=== PATIENT | male | born 1945 | race Caucasian/White ===

== ENCOUNTER 2019-03-23 22:54 | Inpatient (IN) ==
--- NOTE | 2019-03-23 23:17 | EKG Report ---
Test Performed on : 03/23/2019 11:13:40 PM Test Reason : sob Blood Pressure : / mmHG Vent. Rate : 057 BPM Atrial Rate : 072 BPM P-R Int : 000 ms QRS Dur : 190 ms QT Int : 516 ms P-R-T Axes : 000 -39 136 degrees QTc Int : 502 ms Atrial fibrillation. with slow ventricular response. with premature ventricular or aberrantly conduct ed complexes. and with ventricular escape complexes. Left axis deviation Left bundle branch block Abnormal ECG When compared with ECG of 04-AUG-2017 16:29, Sinus rhythm. is now with ventricular escape complexes. Unconfirmed Result
[2019-03-24 00:14] LABS: BASO% 0.7 % (0.0-0.8); EOS# 0.36 X1000 (0.0-0.7); EOS% 2.4 % (0.0-10.0); HEMATOCRIT 36.2 % (42.0-52.0); HEMOGLOBIN 11.6 g/dL (14.0-18.0); IMM GRAN# 0.04 X1000 (0.0-0.04); IMM GRAN% 0.3 % (0.0-0.5); LYMPH% 20.9 % (20.5-51.1); MCH 29.2 PG (27-31); MCV 91.2 FL (81-99); MONO# 2.38 X1000 (0.11-0.59); MONO% 16.1 % (1.7-9.3); NEUT# 8.84 X1000 (1.4-6.5); NEUT% 59.6 % (42.2-75.2); PLT 317 X1000 (130-400); RBC 3.97 XMIL (4.7-6.1); RDW 16.3 % (11.5-14.5); WBC 14.82 X1000 (4.8-10.8)
[2019-03-24 00:18] LABS: ALB/GLOB RATIO 1.4; ALBUMIN 4.2 g/dL (3.5-5.0); CALCIUM 9.6 mg/dL (8.8-10.2); POTASSIUM 3.7 mmol/L (3.5-5.1); TOTAL BILIRUBIN 0.59 mg/dL (0.20-1.00); TOTAL PROTEIN 7.3 g/dL (6.3-8.3)
[2019-03-24 00:20] LABS: INR 1.03; PROTIME 14.3 Seconds (11.0-16.0)
[2019-03-24 00:21] LABS: PTT 35.5 Seconds (22.3-41.8)
--- NOTE | 2019-03-24 01:13 | PROVIDER DOCUMENTATION ---
This chart was entered by Rimma Rich Scribe, acting as scribe for Caden Chin MD. HPI-Respiratory General - General Chief Complaint: Shortness of Breath Stated Complaint: EDEMA, SOB Time Seen by Provider: 03/23/19 23:20 Source: patient Allergies/Adverse Reactions: Patient Allergies Allergy/AdvReac Type Severity Reaction Status Date / Time Penicillins Allergy RASH Verified 08/04/17 17:05 Home Medications: Home Medication List Medication Instructions Recorded Confirmed Last Taken Type Furosemide [Lasix] 40 mg PO DAILY 03/08/14 08/04/17 08/04/17 07:00 History Hydralazine [Apresoline] 50 tab PO TID 03/08/14 08/04/17 08/04/17 13:00 History Potassium Chloride [Klor-Con M20] 1 tab PO DAILY 03/08/14 08/04/17 08/04/17 07:00 History Diltiazem HCl [Dilt-Xr] 180 cap PO DAILY 05/24/14 08/04/17 08/04/17 07:00 History Fenofibrate 160 mg PO DAILY 05/24/14 08/04/17 08/04/17 07:00 History Omeprazole 20 mg PO DAILY 05/24/14 08/04/17 08/04/17 07:30 History Digoxin 125 mcg PO DAILY 06/22/14 08/04/17 08/04/17 07:00 History Metoprolol Tartrate 100 mg PO DAILY 06/22/14 08/04/17 08/04/17 07:30 History ATORVAstatin [Lipitor] 40 mg PO QHS 08/04/17 08/04/17 08/03/17 20:00 History Allopurinol 100 mg PO DAILY 08/04/17 08/04/17 08/04/17 07:00 History Aspirin EC 81 mg PO DAILY 08/04/17 08/04/17 08/04/17 07:00 History Fluticasone/Salmeterol [Advair 1 each IH BID 08/04/17 08/04/17 08/04/17 07:00 History 500-50 Diskus] Glimepiride 2 mg PO DAILY 08/04/17 08/04/17 08/04/17 07:00 History Metformin [Glucophage] 500 mg PO BID CC 08/04/17 08/04/17 08/04/17 07:00 History Metolazone 2.5 mg PO DAILY 08/04/17 08/04/17 08/04/17 07:00 History Tiotropium Medora Inhaler 18 mcg IH DAILY 08/04/17 08/04/17 08/04/17 07:00 History [Spiriva] Levofloxacin [Levaquin] 500 mg PO DAILY #5 tab 08/06/17 Unknown Rx - History of Present Illness-Resp Nature of Presenting Problem: pt is a 73 yr old male presenting with 1 day complaint of increased shortness of breath and worsening LE edema. pt reports he doubled his Lasix with no relief. pt denies chest pain. Quality of Pain: reports: fullness Severity in ED: reports: severe Onset/Duration: reports: 2 days ago Timing: reports: changing over time, getting worse Exposure: reports: unknown cause Cough Quality/Degree: reports: no cough Episode Frequency: occasional episodes Current Respiratory Medication Therapy: Initiated see nurses note Modifying Factors: improves with: exertion (worsens) Associated Symptoms: reports: cough, shortness of breath, other (increased edema). denies: fever/chills, flu-like symptoms, wheezing Similar Symptoms Previously?: No Recently seen or treated by another doctor?: No Review of Systems - Adult - REVIEW OF SYSTEMS - ADULT Constitutional: denies: fever, fatique Eyes: reports: no symptoms reported Ears, Nose, Mouth & Throat: reports: no symptoms reported Cardiovascular: reports: edema. denies: chest pain, syncope Respiratory: reports: dyspnea on exertion, shortness of breath. denies: cough Gastrointestinal: reports: no symptoms reported Genitourinary: reports: no symptoms reported Musculoskeletal: reports: no symptoms reported Integumentary: reports: no symptoms reported Neurological: denies: dizziness/vertigo, headache/migraines Psychiatric: reports: no symptoms reported Endocrine: reports: no symptoms reported Hematologic/Lymphatic: reports: no symptoms reported Allergic/Immunologic: reports: no symptoms reported All Other Systems: Reviewed and Negative Past History - Adult - PAST MEDICAL HISTORY-ADULT Review of Records: reports: Old Records Reviewed, Nursing Assessment Review, Medications Reviewed, Social history reviewed & non-contributory. Major Childhood Illnesses: reports: denies history Cardiovascular: reports: CAD, HTN, hyperlipidemia Respiratory: reports: COPD Gastrointestinal: reports: denies history Obstetrical/Gynecological: reports: denies history Genitourinary: reports: cancer (renal), prostate cancer Musculoskeletal: reports: denies history Neurological: reports: denies history Endocrine/Immune: reports: Diabetes Other Conditions: reports: denies history - PRIOR SURGERIES/PROCEDURES Surgical/Procedure History: reports: appendectomy, CABG, cholecystectomy, hernia repair, other (TURP/nephrectomy) - IMMUNIZATION STATUS Childhood Immunizations: See Nurse Assessment Flu Vaccine: See Nurse Assessment - FAMILY HISTORY Family History: reviewed, not pertinent - SOCIAL HISTORY Smoking: quit greater than 1 year Substance Use: denies Living Situation: family Physical Exam-General - PHYSICAL EXAM-ADULT Initial Vital Signs Reviewed: Yes - CONSTITUTIONAL General Appearance: alert, no apparent distress, obese - EYES Eyes: PERRL/EOMI - HEAD, EARS, NOSE, MOUTH & THROAT HENMT: normocephalic/atraumatic, moist mucous membranes - NECK Neck: non-tender, full range of motion, supple, normal inspection - RESPIRATORY Respiratory: chest non-tender, lungs clear, normal breath sounds, no respiratory distress, no accessory muscle use - CARDIOVASCULAR Cardiovascular: normal peripheral pulses, regular rate, rhythm, other (+3 pitting edema ble) - GASTROINTESTINAL (ABDOMEN) Abdominal Exam: normal bowel sounds, non tender, soft - LYMPHATIC Lymphatic: no adenopathy - MUSCULOSKELETAL Back Exam: normal inspection, no CVA tenderness, no vertebral tenderness Extremity: normal range of motion, pedal edema (+3BLE pitting edema) - SKIN Integumentary: normal color, normal turgor, warm/dry - PSYCHIATRIC Psych/Mental Status: normal mood/affect - HEART Score HEART Score: History: Moderately Suspicious HEART Score: ECG: Non-Specific Repolarization Disturbance/LBBB/PM HEART Score: Age: > or = 65 Years HEART Score: Risk Factors for Atherosclerotic Disease: > or = 3 Risk Factors or History of Atherosclerotic Disease HEART Score: Troponin: < or = Normal Limit Total HEART Score:: 6 Progress - PLAN OF CARE/RESULTS Progress/Plan/Lab Results: Vital Signs - 8 hr 03/23/19 22:59 03/23/19 23:27 03/23/19 23:33 Temperature 97.4 F L Pulse Rate 65 60 Respiratory Rate 20 15 20 Blood Pressure 160/79 144/72 136/68 O2 Sat by Pulse Oximetry 98 94 L 92 L 03/24/19 00:03 03/24/19 00:33 Temperature Pulse Rate 53 L 52 L Respiratory Rate 20 18 Blood Pressure 148/50 131/53 O2 Sat by Pulse Oximetry 94 L 91 L Laboratory Results - last 24 hr 03/23/19 03/23/19 03/23/19 23:30 23:30 23:30 WBC 14.82 H RBC 3.97 L Hgb 11.6 L Hct 36.2 L MCV 91.2 MCH 29.2 MCHC 32.0 L RDW Std Deviation 16.3 H Plt Count 317 MPV 11.0 H Immature Gran % (Auto) 0.3 Neut % (Auto) 59.6 Lymph % (Auto) 20.9 Henry % (Auto) 16.1 H Eos % (Auto) 2.4 Baso % (Auto) 0.7 Immature Gran # (Auto) 0.04 Neut # (Auto) 8.84 H Lymph # (Auto) 3.10 Henry # (Auto) 2.38 H Eos # (Auto) 0.36 Baso # (Auto) 0.10 PT INR PTT (Actin FS) Sodium 142 Potassium 3.7 Chloride 99 Carbon Dioxide 27 Anion Gap 16 BUN 34 H Creatinine 2.0 H Estimated GFR/1.73 m2 33 BUN/Creatinine Ratio 17 Glucose 91 Calculated Osmolality 290 Calcium 9.6 Total Bilirubin 0.59 AST 24 ALT 9 L Alkaline Phosphatase 78 Troponin T [id number] Pept 2044 H Total Protein 7.3 Albumin 4.2 Globulin 3.1 Albumin/Globulin Ratio 1.4 03/23/19 03/23/19 23:30 23:30 WBC RBC Hgb Hct MCV MCH MCHC RDW Std Deviation Plt Count MPV Immature Gran % (Auto) Neut % (Auto) Lymph % (Auto) Henry % (Auto) Eos % (Auto) Baso % (Auto) Immature Gran # (Auto) Neut # (Auto) Lymph # (Auto) Henry # (Auto) Eos # (Auto) Baso # (Auto) PT 14.3 INR 1.03 PTT (Actin FS) 35.5 Sodium Potassium Chloride Carbon Dioxide Anion Gap BUN Creatinine Estimated GFR/1.73 m2 BUN/Creatinine Ratio Glucose Calculated Osmolality Calcium Total Bilirubin AST ALT Alkaline Phosphatase Troponin T 0.030 Qcd-J-Oqasfjwwiov Pept Total Protein Albumin Globulin Albumin/Globulin Ratio Orders Category Date Time Status cxr [CHEST-1 VIEW] [RAD] Stat Exams 03/23/19 23:14 Taken CBC WITH ELECTRONIC DIFF [HEME] Stat Lab 03/23/19 23:30 Completed COMPREHENSIVE METABOLIC PANEL [CHEM] Stat Lab 03/23/19 23:30 Completed PRO B-NATRIURETIC PEPTIDE Stat Lab 03/23/19 23:30 Completed PT [PROTIME WITH INR] [COAG] Stat Lab 03/23/19 23:30 Completed PTT [COAG] Stat Lab 03/23/19 23:30 Completed TROPONIN T Stat Lab 03/23/19 23:30 Completed EKG [EKG] Stat Ther 03/23/19 22:58 Draft At recheck pt notes that he is breathing better and agrees with admission. Result Diagrams: 03/23/19 23:30 03/23/19 23:30 - CONSULTS/PCP/HOSPITALIST Notification #1 *Consult/PCP/Hospitalist*: Dr Young Time Discussed: 01:10 Consult Disposition: Will see in ED, Admit Departure - Departure Date of Disposition Decision: 03/24/19 Time of Disposition Decision: 01:10 DIAGNOSIS: CHF (congestive heart failure), Renal insufficiency, COPD exacerbation Disposition: ADMITTED INPATIENT 09 Certified Medical Emergency: Emergent Condition: Fair Referrals and Follow-Ups: Ron Bernstein MD [Primary Care Provider] - - Critical Care Note This patient required my direct & personal management of CC.: No Attestation - Physician/ ERICA Attestation Patient care was provided by Advanced Practice Provider:: No The physician spent face to face time with patient:: Yes Advanced Practice Provider documentation review:: Supervising physician onsite a nd consulted in the evaluation and care of this patient. The physician did have a face to face encounter with the patient. This chart was documented by the indicated scribe, (Rimma Rich Scribe) and accurately reflects the services I performed and decisions made by me, Caden Chin MD, as attested by the provider's signature.
[2019-03-24] MEDS: ZITHROMAX 500 MG/NS 500 MG/250 ML IVPB ONE ×2 (02:01→02:10)
[2019-03-24] MEDS ORDERED: DUONEB (A & A) INH PRN (04:49)
[2019-03-24 05:24] LABS: BASO# 0.08 X1000 (0.0-0.2); BASO% 0.6 % (0.0-0.8); EOS# 0.25 X1000 (0.0-0.7); HEMOGLOBIN 10.7 g/dL (14.0-18.0); IMM GRAN# 0.03 X1000 (0.0-0.04); IMM GRAN% 0.2 % (0.0-0.5); LYMPH% 22.5 % (20.5-51.1); MCH 28.9 PG (27-31); MCHC 31.5 g/dL (33-37); MCV 91.9 FL (81-99); MONO# 1.79 X1000 (0.11-0.59); MONO% 14.4 % (1.7-9.3); MPV 10.6 FL (7.4-10.4); NEUT# 7.48 X1000 (1.4-6.5); NEUT% 60.3 % (42.2-75.2); PLT 299 X1000 (130-400); RDW 16.5 % (11.5-14.5); WBC 12.43 X1000 (4.8-10.8)
--- NOTE | 2019-03-24 05:25 | HISTORY AND PHYSICAL ---
PRIMARY CARE PROVIDER: Dr. Bernstein. DATE AND TIME: 03/24/2019 at 0210. CHIEF COMPLAINT: Shortness of breath and bilateral lower extremity edema. HISTORY OF PRESENT ILLNESS: Mr. Santiago is a 73-year-old male who presented to the ER last night on 03/23/2019 at 22:54 with complaints of worsening bilateral lower extremity edema over the past 2 to 3 days and dyspnea upon exertion for the last 1 to 2 days. The patient states that the swelling in his legs is much worse, and have almost doubled in size. He also reports that he has had abdominal swelling, and feeling like his abdomen is tight. He also reports early satiety and exertional dyspnea though he denies any orthopnea, paroxysmal nocturnal dyspnea, or chest pain. The patient denies any known history of congestive heart failure or being told that he has congestive heart failure though he did have aortic valve replacement approximately 10 years ago. He also had a history of dysrhythmia though the patient cannot report what type. Looking back at his old EKGs as well as EKG performed today, he has had atrial fibrillation in the past. This is likely what his irregular heart rhythm is. He takes medications of digoxin, metoprolol and Cardizem for control of this as well. The patient denies any headache, dizziness, chest pain, or cough. He denies any fever, body aches, or chills. He denies any nausea vomiting, or abdominal pain. He reported that his abdomen feels more swollen and tight. He denies any diarrhea, hematochezia or melena. He denies any dysuria though did report that he felt like his urine output had decreased. The patient is reporting edema in bilateral lower extremities, and was reporting some right ankle pain. Upon evaluation in the ER, vital signs were temperature 97.9 degrees, heart rate 54, respirations 16, blood pressure 133/55 with a MAP of 74. Oxygen saturation was 95% on 4 L nasal cannula at 2L. EKG showed atrial fibrillation with a slow ventricular response with premature ventricular or aberrantly conducted complexes with ventricular escape complexes. There is also a left bundle branch block noted though this was present on previous EKGs. The rate was 57. The patient does have some leukocytosis [place] [id number] though this does appear to be the patient's baseline white blood cell count. He does have a history of having a splenectomy. His creatinine was elevated from his baseline as well. It does appear that over the past few years his baseline creatinine has been from 1.3 to 1.6. It is 2 at this time with a GFR of 33. He also does have elevated proBNP, and that is 2043. His troponin is slightly elevated at 0.03. The patient is denying any chest pain at this time. This could possibly be related to his acute on chronic kidney disease though given his symptom presentation we will rule out further cardiac involvement. Chest x-ray is still awaiting official radiology though it does appear to be some possible increased vascular congestion though his lung sounds were clear to auscultation in bilateral full martinez. At this time, the patient will be admitted for further treatment and evaluation of his possible CHF exacerbation. REVIEW OF SYSTEMS: A 14 point review of systems was conducted with the patient, and all were negative except for pertinent positives mentioned above in HPI. PAST MEDICAL HISTORY: 1. Diabetes mellitus type 2. 2. Hypertension. 3. Hyperlipidemia. 4. Chronic kidney disease. 5. COPD, 6. Likely sleep apnea. The patient does wear CPAP at night. 7. History of aortic valve replacement. 8. History of dysrhythmia for which I believe is atrial fibrillation according to his EKG today, and previous EKGs though it does not appear that the patient takes any anticoagulants. He denies any anticoagulant use, and states that he only takes an 81 mg aspirin daily. 9. History of prostate cancer status post prostatectomy. 10. History of renal cell carcinoma status post left partial nephrectomy. 11. It is reported in the patient's chart he has a history of coronary artery disease, and coronary artery bypass graft. Though upon questioning the patient, he denies any known history of having coronary artery bypass graft or any cardiac stents. PAST SURGICAL HISTORY: 1. Aortic valve replacement. 2. Cholecystectomy. 3. Splenectomy. 4. Hernia repair. 5. Appendectomy. 6. Prostatectomy. 7. Left partial nephrectomy. SOCIAL HISTORY: The patient is a former smoker. He quit smoking at 33 years old though prior to that he smoked off and on since he was 13. At max, he smoked 1-1/2 packs per day. He denies any alcohol or illicit drug use. FAMILY HISTORY: Positive for his mother having a history of stroke. His father had a history of COPD. ALLERGIES: The patient reports allergies to penicillin. HOME MEDICATIONS: We are waiting for the patient's home medications to be updated and verified. Once done so, we will continue appropriate medicines. DIAGNOSTIC DATA/LABORATORY RESULTS: White blood cell count is 14,820, hemoglobin 11.6, hematocrit 36.2, and platelet count is 317,000. PT 14.3, INR 1.03, and PTT is 35.5. Sodium 142, potassium 3.7, chloride 99, serum bicarb 27, BUN 34, creatinine 2 with a GFR of 33, glucose 91, calcium 9.6. Liver function tests are within normal limits. Troponin 0.03. ProBNP is 2044. Digoxin level is 1. EKG shows atrial fibrillation with a slow ventricular response with premature ventricular or aberrantly conducted complexes with ventricular escape complexes. There is also a left bundle branch block noted though this is not of new onset. It was present on previous EKGs. The ventricular rate was 57 with a QTc of 502. Chest x-ray. He does appear to have some possibly increased pulmonary vascular congestion. PHYSICAL EXAMINATION: VITAL SIGNS: Temperature 97.9 degrees, heart rate 54, respirations 16, blood pressure 133/55 with oxygen saturation of 95% on nasal cannula at 2 L. GENERAL: Mr. Santiago is a very pleasant 73-year-old male. He was sitting on the ER stretcher and resting. He was in no acute distress. He was awake, alert, and able to answer questions appropriately. HEENT: Head is atraumatic, normocephalic. Pupils are equal, round, and reactive to light and were 3 mm bilaterally and brisk. Oral mucosa is moist. Oropharynx is clear. NECK: Supple. Trachea midline. There was JVD noted upon examination with a positive hepatojugular reflex. CARDIOVASCULAR: Patient has S1-S2 present. No murmur, gallop or rub appreciated with a slightly bradycardic rate that is irregularly irregular. PULMONARY: Patient has symmetrical chest expansion bilaterally. Lung sounds are clear to auscultation in bilateral full martinez. ABDOMEN: Soft. Nontender. Does appear to be distended. Bowel sounds are present in all 4 quadrants, and were normoactive. EXTREMITIES: No cyanosis noted, though the patient does have 2 to 3+ pitting edema in bilateral lower extremities from the knees down. Pulse, motor and sensory is intact in all extremities. Radial pulses and pedal pulses were 3+ bilaterally. INTEGUMENTARY: Skin is pink, warm, and dry. NEUROLOGICAL: Patient is alert and oriented to person, place, time, and situation. He is able to move all extremities. There are no focal neurological deficits noted. ASSESSMENT AND PLAN: 1. CHF exacerbation. Though the patient does not report orthopnea or paroxysmal nocturnal dyspnea, he is reporting exertional dyspnea as well as bilateral lower extremity edema, abdominal swelling, early satiety, and he does have JVD noted. He did state that he doubled his normal daily dose of Lasix though still continued to have worsening symptoms. For further treatment evaluation, we will go ahead and continue with a series of cardiac enzymes. We will repeat the EKG in the morning. We have ordered an echocardiogram. We will do Lasix 40 mg IV q.12 hours. We will do strict intake and output, daily weights, and we will closely monitor his response to these interventions. We have placed a consult with Dr. Colmenares with Cardiology. We will await his evaluation and further recommendations as per Radiology. 2. History of aortic valve replacement ten years ago. 3. History of atrial fibrillation. We will continue the patient's regularly prescribed medicines of Digoxin and Cardizem though his heart rate was slightly bradycardic in the ER, we will hold his metoprolol at this time. We are awaiting for his home medication dosages to be verified. Once done so, we will continue his regularly prescribed medications for this. 4. Hypertension. Patient's blood pressure is within normal limits at this time. Once we have reconciled his home medications, we will continue his regularly prescribed medicines. 5. Acute on chronic kidney disease. The patient does appear to have a baseline creatinine of 1.3 to 1.6 though at this time this has slightly increased. It is 2 at this time with a GFR of 33. We will avoid nephrotoxic medications and renally adjust medicines as necessary. We will continue to follow closely. 6. COPD. The patient reports history of COPD though this does not appear to be an exacerbation at this time. We will provide supplemental oxygen as needed. We have placed orders for p.r.n. DuoNeb treatments. 7. Diabetes mellitus type 2. Given the patient's acute kidney injury, we will hold his oral diabetic medications. We will place him on a sliding scale regular insulin per low-dose protocol. He will be on a diabetic heart healthy diet. The patient has been placed on the medical floor of telemetry. He will have vital signs q. 4 hours. Along with his serial cardiac enzymes, we will repeat a CBC, BMP, and magnesium in the morning. Further orders and recommendations pending hospital course, diagnostic studies, and physician evaluation. Dictated by CHELSEA Oropeza for Jason Young MD I have performed a face to face diagnostic evaluation. Labs/ xrays- reviewed. Exam- chest- rales, CV- regular. A/P- CHF Exacerbation- Admit, diuresis with lasix. cardiology consult. Dr. Young cc: Jason Young MD MTDD
[2019-03-24 05:55] LABS: CALCIUM 8.6 mg/dL (8.8-10.2); CREATININE 1.9 mg/dL (0.7-1.2); MAGNESIUM 1.7 mg/dL (1.5-2.7); POTASSIUM 3.4 mmol/L (3.5-5.1)
[2019-03-24] MEDS: LASIX IV SCH ×3 (06:38→17:32)
[2019-03-24] MEDS: HUMULIN R SUBQ SCH ×4 (07:00→21:21)
--- NOTE | 2019-03-24 07:13 | Diag Imaging Result Doc PS360 ---
EXAM: CHEST-1 VIEW 03/23/2019 HISTORY: sob TECHNIQUE: AP portable upright at 1139 COMMENT: There is cardiomegaly. There is slightly increased interstitial opacity bilaterally with blunting of the left costophrenic angle and obscuration of the left hemidiaphragm. Compared to 08/06/2017 the cardiomegaly is worse in the pulmonary edema is also slightly worse. The left basilar opacities were not present previously. IMPRESSION: Left pleural effusion. Atelectasis versus pneumonia left lower lobe. Cardiomegaly and mild pulmonary edema. Electronically signed by Zachary Villarreal 03/24/2019 7:11 AM
--- NOTE | 2019-03-24 08:05 | EKG Report ---
Test Performed on : 03/24/2019 07:23:56 AM Test Reason : CHF Blood Pressure : / mmHG Vent. Rate : 068 BPM Atrial Rate : 078 BPM P-R Int : 000 ms QRS Dur : 192 ms QT Int : 482 ms P-R-T Axes : 000 -44 127 degrees QTc Int : 512 ms Atrial fibrillation. Left axis deviation Left bundle branch block Abnormal ECG When compared with ECG of 23-MAR-2019 23:13, (Unconfirmed) PVCs, aberrantly conducted complexes, and ventricular escape complexes are no longer present. Confirmed by Rory Ray MD ([id number]) on 03/25/2019 9:17:00 PM
[2019-03-24] MEDS ORDERED: HEPARIN SUBQ SCH (09:00)
[2019-03-24] MEDS ORDERED: TOPROL XL PO SCH (10:45)
[2019-03-24] MEDS ORDERED: LANOXIN PO SCH (10:45)
[2019-03-24] MEDS: KLOR-CON PO SCH (11:20)
[2019-03-24] MEDS: CARDIZEM CD PO SCH (11:20)
[2019-03-24 15:57] LABS: URINE SOURCE CLEAN CATCH
[2019-03-24 16:08] LABS: BILIRUBIN URINE NEGATIVE (NEGATIVE); BLOOD URINE NEGATIVE (NEGATIVE); COLOR YELLOW; GLUCOSE URINE NEGATIVE (NEGATIVE); KETONE URINE NEGATIVE (NEGATIVE); LEUKOCYTES URINE NEGATIVE (NEGATIVE); NITRITE URINE NEGATIVE (NEGATIVE); PROTEIN URINE NEGATIVE (NEGATIVE); SP GRAVITY URINE 1.012; TURBIDITY URINE CLEAR (CLEAR); UROBILINOGEN URINE NORMAL (NORMAL)
[2019-03-24 16:09] LABS: UR EPITHELIAL CELLS <10 /HPF (<10); URINE BACTERIA NEGATIVE /HPF; URINE RBC <10 /HPF (<10); URINE WBC <10 /HPF (<10)
--- NOTE | 2019-03-24 18:14 | CONSULTATION ---
DATE OF CONSULTATION: 03/24/2019 IMPRESSION: 1. Acute on chronic congestive heart failure with preserved left ventricular ejection fraction. Suspect this is largely related to pulmonary hypertension as he manifested predominantly right- sided heart failure. 2. Obesity. 3. Obstructive sleep apnea. 4. Chronic obstructive pulmonary disease. 5. Valvular heart disease. Patient is status post previous aortic valve bioprosthesis approximately 10 years ago. 6. Previous atrial fibrillation. 7. Hypertension. 8. Acute on chronic kidney disease. This may very well be related to cardiorenal processes. 9. Type 2 diabetes mellitus. RECOMMENDATIONS: 1. Agree with diuresis with IV Lasix. 2. Followup echocardiography. HISTORY: This 73-year-old, white male with past history of congestive heart failure with preserved left ventricular ejection fraction, previous aortic valve bioprosthesis 10 years ago, obesity, obstructive sleep apnea, COPD, hypertension, type 2 diabetes mellitus, and chronic kidney disease was admitted with exacerbation of congestive heart failure. He reports a several day history of progressive lower extremity edema. He has also had increase in exertional shortness of breath but no orthopnea. There has been no angina. He also has noted some tendency for abdominal swelling and diminished responsiveness to oral Lasix. PAST MEDICAL HISTORY: 1. Status post aortic valve replacement with bioprosthesis approximately 10 years ago. 2. Congestive heart failure with preserved left ventricular ejection fraction. 3. Obstructive sleep apnea. 4. Obesity. 5. Chronic obstructive pulmonary disease. 6. Previous atrial fibrillation. 7. Hypertension. 8. Left bundle branch block. 9. Chronic kidney disease. 10. Hyperlipidemia. 11. Status post partial left nephrectomy for renal cell carcinoma. PAST SURGICAL HISTORY: Also includes aortic valve replacement with bioprosthesis approximately 10 years ago, cholecystectomy, splenectomy, hernia repair, appendectomy, prostatectomy, and left partial nephrectomy. ALLERGIES: He is allergic or intolerant to penicillin. MEDICATIONS PRIOR TO ADMISSION: As listed. 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 He quit smoking approximately 35 years ago after smoking 1-1/2 packs of cigarettes per day since age 13. That suggests approximately a 45 pack-year history of smoking. He denies alcohol or illicit drug use. FAMILY HISTORY: Negative for premature coronary disease. REVIEW OF SYSTEMS: Pulmonary: Noteworthy for exertional shortness of breath but negative for orthopnea. There has been no significant cough. Gastrointestinal: Noteworthy for some increase in abdominal girth but otherwise negative. Constitutional: Noteworthy for weight gain but otherwise noncontributory. Remainder of review of systems negative/noncontributory with 14 total systems reviewed. PHYSICAL EXAMINATION: General: This is an overweight, older white male in no distress on room air. Vital signs: Blood pressure 147/61, heart rate 72, oxygen saturation 96% on room air. HEENT Exam: Extraocular muscles appear intact. Mucous membranes moist. Neck: Supple. Jugular distention is evident consistent with a significantly elevated central venous pressure. There are no carotid bruits. Chest: Clear to auscultation bilaterally with somewhat diminished breath sounds diffusely. Cardiac Exam: Reveals a regular rate and rhythm without appreciable murmur or gallop. Abdomen: Soft. Bowel sounds are normal. There is no evidence of shifting dullness or fluid wave. Extremities: Demonstrate moderate to severe low pretibial and ankle edema. Neurologic Exam: Reveals him to be alert and fully oriented. Speech is fluent. Moves all 4 extremities equally well. Skin: Warm and dry. Psychiatric: Reveals mood to be appropriate. DIAGNOSTIC DATA: Twelve-lead EKG demonstrates atrial fibrillation with a heart rate of 57 beats per minute. There was occasional premature ventricular or aberrantly conducted complex. Left axis deviation is demonstrated. Left bundle branch blocks demonstrated. LABORATORY DATA: Includes a white blood cell count of 12.43, hematocrit 34.9, hemoglobin 10.7, platelet count 299,000, sodium 145, potassium 3.4, chloride 102, carbon dioxide 29, BUN 31, creatinine 1.9. Glucose 87, initial troponin T 0.03, followup troponin T 0.012. CPK 95. cc: Chalo Colmenares MD
[2019-03-24] MEDS: ELIQUIS PO SCH (21:21)
[2019-03-24] MEDS: LIPITOR PO SCH (21:21)
[2019-03-25] MEDS: LASIX IV SCH ×2 (06:21→17:15)
[2019-03-25] MEDS: HUMULIN R SUBQ SCH ×4 (07:00→21:35)
[2019-03-25 07:09] LABS: BASO# 0.07 X1000 (0.0-0.2); BASO% 0.6 % (0.0-0.8); EOS# 0.32 X1000 (0.0-0.7); EOS% 2.5 % (0.0-10.0); HEMATOCRIT 35.4 % (42.0-52.0); HEMOGLOBIN 11.2 g/dL (14.0-18.0); IMM GRAN# 0.04 X1000 (0.0-0.04); IMM GRAN% 0.3 % (0.0-0.5); LYMPH# 3.04 X1000 (1.2-3.4); LYMPH% 24.1 % (20.5-51.1); MCH 29.3 PG (27-31); MCHC 31.6 g/dL (33-37); MCV 92.7 FL (81-99); MONO% 13.5 % (1.7-9.3); MPV 11.6 FL (7.4-10.4); NEUT# 7.43 X1000 (1.4-6.5); PLT 316 X1000 (130-400); RBC 3.82 XMIL (4.7-6.1); RDW 16.7 % (11.5-14.5)
[2019-03-25 07:34] LABS: AGAP 11; BUN 29 mg/dL (8-22); CALCIUM 9.5 mg/dL (8.8-10.2); CHLORIDE 98 mmol/L (98-107); COSMO 290; GLUCOSE 111 mg/dL (70-104); POTASSIUM 3.4 mmol/L (3.5-5.1); SODIUM 142 mmol/L (136-145); TCO2 33 mmol/L (25-35)
[2019-03-25 07:35] LABS: CREATININE 1.5 mg/dL (0.7-1.2)
--- NOTE | 2019-03-25 07:50 | ECHO REPORT ---
ORDER DATE: 03/24/2019 INTERPRETING PHYSICIAN: Dr. Deluca REQUESTING PHYSICIAN: Hospitalist Service. CLINICAL INDICATIONS: CHF. The patient has had previous aortic valve replacement with a porcine valve and previous echocardiogram in this hospital in August 2017. M-MODE MEASUREMENTS: Left ventricle end diastole: 6.6 cm. Left ventricle end systole: 4.6 cm. Posterior wall: 1.5 cm. Interventricular septum: 1.5 cm. Left atrium: 3.5 cm. Aortic diameter: 3.5 cm. SUMMARY OF 2-DIMENSIONAL IMAGING: The left ventricular function appears to be minimally decreased in the order to 50-55%. The left atrium is markedly dilated. The mitral valve shows mild to moderate degree of regurgitation. The pulse wave Doppler of mitral inflow shows single filling wave. There is thickening of the mitral annulus. The aortic valve is a bioprosthetic valve. Maximum gradient across the valve is 51 mmHg, mean gradient is 30 mmHg. The tricuspid valve shows moderate degree of regurgitation. The inferior vena cava is dilated. The pulmonary systolic pressure is elevated. It is probably in the order of 71 mmHg. Pulmonic valve is unremarkable. The left atrium is markedly dilated. Right atrium is moderately enlarged. The right ventricle is mildly enlarged. There is no pericardial effusion. SUMMARY: This study shows 1. Minimal decreased ejection fraction in the order of 50-55%. Cardiac cycles appear to be irregular. 2. Significantly enlarged left atrium. 3. Bioprosthetic valve in the aortic position with a mean gradient of 30 mmHg. When compared with prior study, the gradient has not changed. 4. Mild to moderate degree of mitral regurgitation. 5. Significant pulmonary hypertension estimated at 71 mmHg. Clinical correction recommended. cc: Nicholas Deluca MD
[2019-03-25] MEDS: TOPROL XL PO SCH (08:48)
[2019-03-25] MEDS: CARDIZEM CD PO SCH (08:48)
[2019-03-25] MEDS: ELIQUIS PO SCH ×2 (08:48→20:19)
[2019-03-25] MEDS: KLOR-CON PO SCH (08:49)
[2019-03-25] MEDS: LOFIBRA PO SCH (08:49)
[2019-03-25] MEDS ORDERED: KLOR-CON PO ONE (09:42)
--- NOTE | 2019-03-25 14:56 | PROGRESS NOTE ---
DATE: 03/25/2019 SUBJECTIVE: Patient denies shortness of breath on room air. There has been no chest pain. OBJECTIVE: Vital signs: Blood pressure 114/49, heart rate 111 and regular. Oxygen saturation 92% on room air. Neck: Jugular venous distention is significantly elevated consistent with elevated central venous pressure. Chest: Clear to auscultation bilaterally. Cardiac: Reveals a regular rate and rhythm without appreciable murmur or gallop. Extremities: Demonstrate mild to moderate pretibial edema. LABORATORY DATA: Includes a white blood cell count 12.6, hematocrit 35.4, hemoglobin 11.2, platelet count 316,000. Sodium 142, potassium 3.4, chloride 98, carbon dioxide 33, BUN 29, creatinine 1.5, glucose 111. Echocardiography reports left ventricular ejection fraction of 50 to 55 percent. Left atrial enlargement is demonstrated. Aortic valve bioprosthesis appears to be functioning adequately. There is mild to moderate mitral regurgitation significant pulmonary hypertension is demonstrated with mild right ventricular enlargement and moderate right atrial enlargement. IMPRESSION: 1. Acute on chronic congestive heart failure with relatively preserved left ventricular ejection fraction. This appears to be largely related to pulmonary hypertension and right-sided heart failure. 2. Obesity. 3. Obstructive sleep apnea. 4. Chronic obstructive pulmonary disease. 5. Valvular heart disease with history of previous aortic valve bioprosthesis approximately 10 years ago. 6. Previous atrial fibrillation. 7. Hypertension. 8. Acute on chronic kidney disease. 9. Type 2 diabetes mellitus. RECOMMENDATIONS: 1. Gently increase IV Lasix to 60 mg IV q.12. 2. Continue diuresis. cc: Chalo Colmenares MD
--- NOTE | 2019-03-25 15:31 | PROGRESS NOTE ---
DATE: 03/25/2019 SUBJECTIVE: The patient is sitting at the bedside. He is not complaining of chest pain or shortness of breath. He does have fluid overload. His potassium level is low, and I will replace it. Kidney function getting better. I will continue with same management. Cardiology Department on board. OBJECTIVE: Vital Signs: Temperature 98.1 degrees, pulse 113, respiratory rate 20, blood pressure 114/49, oxygen saturation 92 on room air. HEENT: Head normocephalic, no trauma. PERRLA. Neck: Supple. No JVD. No masses. Central trachea. Chest: Clear to auscultation. Some crepitus and rales mostly at the bases. Abdomen: Soft, protuberant, nontender, nondistended. No hepatosplenomegaly. Extremities: 3+ lower extremity edema all the way up to the thighs. Pulses are present. No clubbing, no cyanosis. Neurological: The patient is alert and oriented x3. No focal deficits. LABORATORY: WBC 12.6, hemoglobin 11.2, hematocrit 35.4, platelets 316,000. Sodium 142, potassium 3.4, chloride 98, bicarbonate 33, BUN 29, creatinine 1.5, glucose 111, calcium 9.5. ASSESSMENT AND PLAN: 1. Acute on chronic congestive heart failure with preserved left ejection fraction. His echocardiogram showed an ejection fraction around 50% to 55% which is slightly decreased. We will continue with the same management for now. I believe he is getting better. He does have a severe pulmonary hypertension, though. 2. Pulmonary hypertension, as above. Continue with the same treatment. 3. Obesity. Aware. 4. Chronic obstructive pulmonary disease, not in exacerbation. 5. Valvular heart disease status post aortic valve prosthesis. 6. Obstructive sleep apnea. Aware. 7. Previous atrial fibrillation. Continue with same management. He is on anticoagulation and medication to control his heart rhythm. 8. Hypertension, stable. 9. Acute on chronic kidney disease. This is getting better. Continue with same management. 10. Type 2 diabetes. Continue with pattern of blood sugar and sliding scale insulin. 11. Dyslipidemia. Continue with Lipitor. 12. Status post partial left nephrectomy due to renal cell carcinoma. This patient is feeling better. I will continue with same management. I will follow the recommendations of Cardiology Department. cc: Juan Boudreaux MD
[2019-03-25] MEDS: LIPITOR PO SCH (20:19)
[2019-03-26 05:37] LABS: BASO# 0.09 X1000 (0.0-0.2); BASO% 0.6 % (0.0-0.8); EOS# 0.42 X1000 (0.0-0.7); HEMATOCRIT 35.3 % (42.0-52.0); IMM GRAN# 0.06 X1000 (0.0-0.04); IMM GRAN% 0.4 % (0.0-0.5); LYMPH# 3.61 X1000 (1.2-3.4); LYMPH% 25.4 % (20.5-51.1); MCH 29.1 PG (27-31); MCHC 31.2 g/dL (33-37); MCV 93.4 FL (81-99); MONO# 1.99 X1000 (0.11-0.59); MPV 11.3 FL (7.4-10.4); NEUT# 8.03 X1000 (1.4-6.5); NEUT% 56.6 % (42.2-75.2); PLT 307 X1000 (130-400); RBC 3.78 XMIL (4.7-6.1); RDW 16.7 % (11.5-14.5)
[2019-03-26] MEDS: LASIX IV SCH ×2 (05:50→17:56)
[2019-03-26 05:57] LABS: CALCIUM 9.4 mg/dL (8.8-10.2); CREATININE 1.6 mg/dL (0.7-1.2); POTASSIUM 2.9 mmol/L (3.5-5.1)
--- NOTE | 2019-03-26 07:08 | Diag Imaging Result Doc PS360 ---
EXAM: CHEST-PORTABLE 03/26/2019 HISTORY: dyspnea TECHNIQUE: AP portable at 0542 COMMENT: There is cardiomegaly. There is increased pulmonary vascularity. There is interstitial opacity throughout both lungs particularly in the lower lung martinez. There is some platelike atelectasis at the right base which is slightly different from what was present on 03/23/2019. The blunting of the left costophrenic angle is less evident on the current study, although this is not entirely included on the image. The appearance of the chest is clearly worse than on 08/06/2017. IMPRESSION: Pulmonary edema and bibasilar atelectasis. Improvement of left pleural effusion. Electronically signed by Zachary Villarreal 03/26/2019 7:05 AM
[2019-03-26] MEDS: CARDIZEM CD PO SCH (08:09)
[2019-03-26] MEDS: KLOR-CON PO SCH (08:10)
[2019-03-26] MEDS: ELIQUIS PO SCH ×2 (08:10→21:30)
[2019-03-26] MEDS: TOPROL XL PO SCH (08:10)
[2019-03-26] MEDS: LOFIBRA PO SCH (09:04)
[2019-03-26] MEDS: HUMULIN R SUBQ SCH ×4 (09:07→21:31)
[2019-03-26] MEDS: PERICOLACE PO SCH ×2 (09:07→21:30)
--- NOTE | 2019-03-26 13:53 | PROGRESS NOTE ---
DATE: 03/26/2019 SUBJECTIVE: The patient is sitting at the bedside. He is not complaining of chest pain or shortness of breath. He is breathing better. He does have fluid overload. Potassium level is low and I will replace it. Cardiology department is on board. OBJECTIVE: Vital Signs: Temperature 98.5 degrees, pulse 60, respiratory rate 18, blood pressure 147/56, oxygen saturation 94% on room air. HEENT: Head normocephalic. No trauma. PERRLA. Neck: Supple. No JVD. No masses. Central trachea. Chest: Clear to auscultation. Some crepitus and rales, mostly at the bases. Abdomen: Soft, protuberant, nontender, nondistended. No hepatosplenomegaly. Extremities: There is 3+ lower extremity edema. No clubbing, no cyanosis. Neurological Examination: The patient is alert. He is oriented x3. No focal deficits. Laboratory: WBC 14.2, hemoglobin 11, hematocrit 35.3, and platelets 307,000. Sodium 143, potassium 2.9, chloride 99, bicarbonate 31, BUN 29, creatinine 1.6, glucose 94, calcium 9.4. ASSESSMENT AND PLAN: 1. Acute on chronic congestive heart failure, ejection fraction of 50-55 percent which is slightly decreased. Likely, this is diastolic. 2. Pulmonary hypertension, as above. Continue with the same treatment. He is on Lasix. Cardiology is on board. 3. Obesity. Aware. 4. Chronic obstructive pulmonary disease, not in exacerbation. 5. Valvular heart disease, status post aortic valve prosthesis. 6. Obstructive sleep apnea. Aware. 7. Previous atrial fibrillation. Continue with the same management. He is on anticoagulation and medication to control his heart rhythm. 8. Hypertension, stable. 9. Acute on chronic kidney disease. This is actually getting better. Continue with the same management. 10. Type 2 diabetes. Continue pattern of blood sugar and sliding scale insulin. 11. Dyslipidemia. Continue with Lipitor. 12. Status post partial left nephrectomy due to renal cell carcinoma. Aware. 13. The patient is feeling better. We will continue with the same management. Cardiology department is on board. I will continue following their recommendations. cc: Juan Boudreaux MD
[2019-03-26] MEDS ORDERED: LASIX IV ONE (15:10)
[2019-03-26] MEDS ORDERED: KLOR-CON PO ONE (15:10)
--- NOTE | 2019-03-26 15:24 | PROGRESS NOTE ---
DATE: 03/26/2019 SUBJECTIVE: Patient denies shortness of breath. There has been no chest pain. He continues to use CPAP at night in the hospital. OBJECTIVE: Vital Signs: Blood pressure 147/56, heart rate 60, oxygen saturation 94% on room air. Neck: Jugular venous distention is prominent, suggesting significantly elevated central venous pressure. Chest: Clear to auscultation. Cardiac exam: Reveals a regular rate and rhythm without appreciable murmur or gallop. Extremities: Demonstrate 1 to 2+ ankle edema bilaterally. LABORATORY DATA: Includes a white blood cell count of 14.2, hematocrit 35.3, hemoglobin 11.0, platelet count 307,000. Sodium 143, potassium 2.9, chloride 99, carbon dioxide 31, BUN 29, creatinine 1.6, glucose 94. IMPRESSIONS: 1. Acute on chronic congestive heart failure with relatively preserved left ventricular ejection fraction which appears to be largely right-sided congestive heart failure related to pulmonary hypertension. Patient improving with diuresis. 2. Obstructive sleep apnea. 3. Obesity. 4. Chronic obstructive pulmonary disease. 5. Valvular heart disease with previous aortic valve bioprosthesis approximately 10 years ago. 6. Previous atrial fibrillation. 7. Hypertension. 8. Acute on chronic kidney disease. 9. Type 2 diabetes mellitus. RECOMMENDATIONS: Continue diuresis with IV Lasix. cc: Chalo Colmenares MD
[2019-03-26] MEDS: LIPITOR PO SCH (21:30)
[2019-03-27 05:48] LABS: BASO# 0.12 X1000 (0.0-0.2); BASO% 0.9 % (0.0-0.8); EOS# 0.43 X1000 (0.0-0.7); EOS% 3.1 % (0.0-10.0); HEMATOCRIT 34.1 % (42.0-52.0); HEMOGLOBIN 10.7 g/dL (14.0-18.0); IMM GRAN# 0.04 X1000 (0.0-0.04); IMM GRAN% 0.3 % (0.0-0.5); LYMPH# 3.38 X1000 (1.2-3.4); LYMPH% 24.7 % (20.5-51.1); MCH 29.2 PG (27-31); MCHC 31.4 g/dL (33-37); MCV 93.2 FL (81-99); MONO# 1.94 X1000 (0.11-0.59); MONO% 14.2 % (1.7-9.3); MPV 11.5 FL (7.4-10.4); NEUT# 7.75 X1000 (1.4-6.5); NEUT% 56.8 % (42.2-75.2); PLT 288 X1000 (130-400); RBC 3.66 XMIL (4.7-6.1); RDW 16.8 % (11.5-14.5); WBC 13.66 X1000 (4.8-10.8)
[2019-03-27 05:52] LABS: CALCIUM 9.3 mg/dL (8.8-10.2); CREATININE 1.6 mg/dL (0.7-1.2); POTASSIUM 2.9 mmol/L (3.5-5.1)
[2019-03-27] MEDS: HUMULIN R SUBQ SCH ×4 (06:27→21:07)
[2019-03-27] MEDS: LASIX IV SCH ×2 (06:50→17:20)
[2019-03-27] MEDS: ELIQUIS PO SCH ×2 (09:12→21:07)
[2019-03-27] MEDS: KLOR-CON PO SCH ×3 (09:12→21:07)
[2019-03-27] MEDS: CARDIZEM CD PO SCH (09:12)
[2019-03-27] MEDS: TOPROL XL PO SCH (09:13)
[2019-03-27] MEDS: PERICOLACE PO SCH ×2 (09:13→21:07)
[2019-03-27] MEDS: LOFIBRA PO SCH (09:13)
--- NOTE | 2019-03-27 09:34 | PROGRESS NOTE ---
DATE: 03/27/2019 SUBJECTIVE: The patient is sitting in bed. He is not complaining of chest pain or shortness of breath. He is actually breathing better. He still has some fluid overload. He is urinating. His urine output is good. Potassium level is low and I will replace it. Cardiology on board. I will follow their recommendations. OBJECTIVE: Vital Signs: Temperature 98.1 degrees, pulse 68, respiratory rate 20, blood pressure 128/58, oxygen saturation 96 on room air. HEENT: Head normocephalic. No trauma. PERRLA. Neck: Supple. No JVD. No masses. Central trachea. Chest: Clear to auscultation, some crepitus and rales at the bases. Abdomen: Soft, protuberant, nontender, nondistended. No hepatosplenomegaly. Extremities: There is 2+ to 3+ lower extremity edema. No clubbing. No cyanosis. Neurological: The patient is alert. He is oriented x3. No focal deficits. LABORATORY: WBC 13.6, hemoglobin 10.7, hematocrit 34.1, platelet 288,000. Sodium 145, potassium 2.9, chloride 100, bicarbonate 32, BUN 31, creatinine 1.6, glucose 91, calcium 9.3. ASSESSMENT AND PLAN: 1. Acute on chronic CHF, ejection fraction is around 50 to 55% which is slightly decreased. He has pulmonary hypertension, likely this is diastolic congestive heart failure exacerbation. 2. Pulmonary hypertension as above. Continue with same treatment. He is on Lasix and he has responded well. 3. Obesity, aware. 4. COPD not in exacerbation. 5. Valvular heart disease status post aortic valve prosthesis. 6. Obstructive sleep apnea, aware. 7. Atrial fibrillation. Continue with same management. He is on anticoagulation and medications to control his heart rate. 8. Hypertension, stable. 9. Acute on chronic kidney disease, this is actually getting better. Continue with same management. 10. Type 2 diabetes. Continue with pattern of blood sugar and sliding scale insulin. 11. Dyslipidemia. Continue with Lipitor. 12. Status post partial left nephrectomy due to renal cell carcinoma. Aware. 13. The patient is feeling better. He is hypokalemic. I will replace the potassium and I will recheck his magnesium as well. cc: Juan Boudreaux MD
[2019-03-27] MEDS ORDERED: KLOR-CON PO ONE (17:57)
--- NOTE | 2019-03-27 18:12 | CARDIOLOGY PROGRESS NOTE ---
DATE: 03/27/2019 SUBJECTIVE: Patient denies shortness of breath or chest discomfort. He relates feeling progressively better. OBJECTIVE: Blood pressure 146/65, heart rate 63 and regular, oxygen saturation 97% on room air. Significant jugular venous distention remains evident, consistent with elevated central venous pressure.Chest: Clear to auscultation bilaterally. Cardiac: Regular rate and rhythm without appreciable murmur or gallop. Extremities: Mild 1+ ankle edema. LABORATORY DATA: Includes a white blood cell count of 13.66, hematocrit. 34.1, hemoglobin 10.7, platelet count 288,000. Sodium 145, potassium 2.9, chloride 100, carbon dioxide 32, BUN 31, creatinine 1.6, glucose 91. IMPRESSION: 1. Acute on chronic congestive heart failure with preserved left ventricular systolic function, which appears to be largely right-sided congestive heart failure related to pulmonary hypertension. Patient improving with diuresis. 2. Obstructive sleep apnea. 3. Obesity. 4. Chronic obstructive pulmonary disease. 5. Valvular heart disease with previous aortic valve replacement with bioprosthesis approximately 10 years ago. 6. Previous atrial fibrillation. 7. Hypertension. 8. Acute on chronic kidney disease. This is improving. 9. Type 2 diabetes mellitus. RECOMMENDATIONS: 1. Continue diuresis with IV Lasix. 2. Patient potentially may be approaching the point where he can be discharged and managed as an outpatient by tomorrow afternoon. cc: Chalo Colmenares MD
[2019-03-27] MEDS: LIPITOR PO SCH (21:07)
[2019-03-28 05:50] LABS: BASO# 0.08 X1000 (0.0-0.2); BASO% 0.6 % (0.0-0.8); EOS# 0.38 X1000 (0.0-0.7); EOS% 2.6 % (0.0-10.0); HEMATOCRIT 34.2 % (42.0-52.0); HEMOGLOBIN 10.8 g/dL (14.0-18.0); IMM GRAN# 0.05 X1000 (0.0-0.04); IMM GRAN% 0.3 % (0.0-0.5); LYMPH# 3.18 X1000 (1.2-3.4); MCH 29.6 PG (27-31); MCHC 31.6 g/dL (33-37); MCV 93.7 FL (81-99); MONO% 13.8 % (1.7-9.3); MPV 11.4 FL (7.4-10.4); NEUT# 8.78 X1000 (1.4-6.5); NEUT% 60.7 % (42.2-75.2); PLT 295 X1000 (130-400); RBC 3.65 XMIL (4.7-6.1); WBC 14.47 X1000 (4.8-10.8)
[2019-03-28] MEDS: HUMULIN R SUBQ SCH ×3 (06:05→21:15)
[2019-03-28 06:10] LABS: ALB/GLOB RATIO 1.2; ALBUMIN 3.9 g/dL (3.5-5.0); CALCIUM 9.4 mg/dL (8.8-10.2); CREATININE 1.6 mg/dL (0.7-1.2); POTASSIUM 3.2 mmol/L (3.5-5.1); TOTAL BILIRUBIN 0.69 mg/dL (0.20-1.00); TOTAL PROTEIN 7.1 g/dL (6.3-8.3)
[2019-03-28] MEDS: LASIX IV SCH ×2 (06:21→17:45)
--- NOTE | 2019-03-28 08:07 | PROGRESS NOTE ---
DATE: 03/28/2019 SUBJECTIVE: The patient is sitting in bed. He is not complaining of chest pain or shortness of breath. Actually, he is breathing better. He still has some fluid overload, but he is much better. Good urine output. We have a negative balance of 7 L. Potassium level is low and I will replace it. Cardiology on board. I will continue following the recommendations. OBJECTIVE: Vital Signs: Temperature 97.7 degrees, pulse 63, respiratory rate 21, blood pressure 109/40, oxygen saturation 94% on room air. HEENT: Head normocephalic, no trauma. PERRLA. Neck: Supple. No JVD. No masses. Central trachea. Chest: Clear to auscultation. Some crepitus and rales at the bases. Abdomen: Soft, protuberant, nontender, nondistended. No hepatosplenomegaly. Extremities: There is 1+ to 2+ lower extremity edema. No clubbing. No cyanosis. Neurological examination: This patient is alert. He is oriented x3. No focal neurological deficits. LABORATORY: WBC 14.4, hemoglobin 10.8, hematocrit 34.2, platelets 295. Sodium 144, potassium 3.2, chloride 100, bicarbonate 30. BUN 34, creatinine 1.6, glucose 100, calcium 9.4. ASSESSMENT AND PLAN: 1. Acute on chronic congestive heart failure. Ejection fraction is around 50 to 55% which is slightly decreased. He has pulmonary hypertension; likely this is a diastolic congestive heart failure exacerbation. Continue with diuretics. I will continue following the recommendations of Cardiology Department. 2. Pulmonary hypertension, as above. Continue with same treatment. He is on Lasix and he has been responding well. 3. Obesity. Aware. 4. Chronic obstructive pulmonary disease, not in exacerbation. 5. Valvular heart disease status post aortic valve prosthesis. 6. Obstructive sleep apnea, aware. 7. Atrial fibrillation. Continue with same management. He is on anticoagulation and medication to control his heart rate. 8. Hypertension, stable. 9. Acute on chronic kidney disease, stable. Continue with same management. 10. Type 2 diabetes. Continue pattern blood sugar and sliding scale insulin. 11. Dyslipidemia. Continue with Lipitor. 12. Status post partial left nephrectomy due to renal cell carcinoma. Aware. 13. Hypokalemia. I will replace the potassium. Likely due to treatment with furosemide. Overall, this patient is better. I believe he can be discharged either today in the afternoon or tomorrow morning. I will wait for Cardiology recommendations. cc: Juan Boudreaux MD
[2019-03-28] MEDS: KLOR-CON PO SCH ×3 (08:52→21:14)
[2019-03-28] MEDS: PERICOLACE PO SCH ×2 (08:52→21:17)
[2019-03-28] MEDS: TOPROL XL PO SCH (08:52)
[2019-03-28] MEDS: CARDIZEM CD PO SCH (08:53)
[2019-03-28] MEDS: LOFIBRA PO SCH (08:53)
[2019-03-28] MEDS: ELIQUIS PO SCH ×2 (08:53→21:14)
--- NOTE | 2019-03-28 14:56 | PROGRESS NOTE ---
DATE: 03/28/2019 SUBJECTIVE: Patient continues without chest discomfort or dyspnea on room air. OBJECTIVE: Vital Signs: Blood pressure 135/61, heart rate 48 to 66 and regular. Oxygen saturation 98% on room air. Jugular venous distention remains present consistent with elevated central venous pressure as well as tricuspid regurgitation. Chest is clear to auscultation. Cardiac exam is a regular rate and rhythm without appreciable murmur or gallop. Extremities demonstrate very mild ankle edema bilaterally. LABORATORY DATA: Includes white blood cell count of 14.47, hematocrit 34.2, hemoglobin 10.8. Sodium 144, potassium 3.2. Chloride 100, carbon dioxide 30, BUN 34, creatinine 1.6, glucose 100. IMPRESSION: 1. Acute on chronic congestive heart failure with preserved left ventricular ejection fraction. Patient's congestive heart failure is largely right-sided, related to pulmonary hypertension. Patient improving with diuresis. He still manifests mild volume overload. 2. Obstructive sleep apnea. 3. Obesity. 4. Chronic obstructive pulmonary disease. 5. Valvular heart disease with previous aortic valve replacement with bioprosthesis approximately 10 years ago. 6. Atrial fibrillation in the past. 7. Hypertension. 8. Type 2 diabetes mellitus. 9. Chronic kidney disease. RECOMMENDATIONS: 1. Continue diuresis with IV Lasix overnight. 2. It would be reasonable to transition to oral Lasix and discharge the patient tomorrow morning. cc: Chalo Colmenares MD
[2019-03-28] MEDS: LIPITOR PO SCH (21:14)
[2019-03-29] MEDS: LASIX IV SCH ×3 (06:32→17:30)
[2019-03-29] MEDS: HUMULIN R SUBQ SCH ×4 (06:35→21:04)
[2019-03-29 06:56] LABS: CALCIUM 9.6 mg/dL (8.8-10.2); CREATININE 1.5 mg/dL (0.7-1.2); POTASSIUM 3.4 mmol/L (3.5-5.1)
[2019-03-29] MEDS: TOPROL XL PO SCH (08:31)
[2019-03-29] MEDS: ELIQUIS PO SCH ×2 (08:32→21:03)
[2019-03-29] MEDS: PERICOLACE PO SCH ×2 (08:32→21:02)
[2019-03-29] MEDS: KLOR-CON PO SCH (08:32)
[2019-03-29] MEDS: LOFIBRA PO SCH (08:32)
[2019-03-29] MEDS: CARDIZEM CD PO SCH (08:32)
[2019-03-29] MEDS: LIPITOR PO SCH (21:02)
--- NOTE | 2019-03-30 06:09 | PROGRESS NOTE ---
DATE: 03/29/2019 SUBJECTIVE: The patient is sitting up at the edge of the bed. He states that he feels good today. He is not requiring supplemental oxygen. The swelling in his legs has improved. OBJECTIVE: Vital signs: Temperature 98.5 degrees, blood pressure 142/67, heart rate 56, respirations 17, O2 saturation 92% on room air.General: This is an elderly male sitting at the edge of the bed in no acute distress. Heart: S1, S2 normal. Bradycardic. Lungs: Clear to auscultation bilaterally. Abdomen: Positive bowel sounds. Soft, nontender, nondistended. Extremities: Trace pedal edema. Neurologic: The patient is alert and oriented x4. LABORATORY DATA: Labs reviewed. ASSESSMENT AND PLAN: 1. Acute on chronic diastolic congestive heart failure exacerbation. Improved. The patient is on room air. Continue on the current medications as directed by the blade aligner. 2. Hypertension. Controlled. Continue on Toprol-XL. 3. Pulmonary hypertension. Aware. 4. Status post aortic valve replacement. Aware. 5. Paroxysmal atrial fibrillation. The patient is rate controlled. Continue on Eliquis. 6. Chronic kidney disease. Stable. 7. Diabetes mellitus type 2. Continue on sliding scale insulin. 8. Disposition. We will plan to discharge the patient home once cleared by the blade aligner. cc: Domonique Vegas MD MTDD
[2019-03-30 06:17] LABS: CALCIUM 9.5 mg/dL (8.8-10.2); CREATININE 1.5 mg/dL (0.7-1.2); MAGNESIUM 2.1 mg/dL (1.5-2.7); POTASSIUM 3.4 mmol/L (3.5-5.1)
[2019-03-30] MEDS ORDERED: KLOR-CON PO ONE (06:33)
[2019-03-30] MEDS: HUMULIN R SUBQ SCH (06:38)
--- NOTE | 2019-03-30 06:56 | PROGRESS NOTE ---
DATE: 03/29/2019 SUBJECTIVE: Patient continues without shortness of breath or chest discomfort on room air. OBJECTIVE: Vital Signs: Blood pressure 139/65, heart rate 69, oxygen saturation 95% on room air. Neck: Jugular venous distention is present, suggesting moderate elevation in central venous pressure. Chest is clear to auscultation. Cardiac Examination: Reveals a regular rate and rhythm without appreciable murmur or gallop. Extremities demonstrate mild ankle edema bilaterally. Laboratory Data: Includes sodium 144, potassium 3.4, chloride 101, carbon dioxide 29, BUN 33, creatinine 1.5, glucose 91. IMPRESSION: 1. Acute on chronic congestive heart failure with preserved left ventricular ejection fraction which is largely right-sided congestive heart failure related to pulmonary hypertension. The patient has improved significantly with diuresis but still manifests a modest amount of volume excess. Nevertheless, he appears to be nearing maximum hospital benefit provided he has close outpatient followup. 2. Obstructive sleep apnea. 3. Obesity. 4. Chronic obstructive pulmonary disease. 5. Valvular heart disease with previous aortic valve replacement with bioprosthesis approximately 10 years ago. 6. Previous atrial fibrillation. 7. Hypertension. 8. Type 2 diabetes mellitus. 9. Chronic kidney disease. RECOMMENDATIONS: 1. Discontinue IV Lasix after p.m. dose tonight. 2. Start oral Lasix tomorrow with 80 mg p.o. daily. 3. Reasonable for patient to be discharged tomorrow to have followup with me in 1 week after discharge. cc: Chalo Colmenares MD
[2019-03-30 07:46] VITALS: BP 127/72
[2019-03-30] MEDS: ELIQUIS PO SCH (08:41)
[2019-03-30] MEDS: CARDIZEM CD PO SCH (08:41)
[2019-03-30] MEDS: TOPROL XL PO SCH (08:41)
[2019-03-30] MEDS: PERICOLACE PO SCH (08:41)
[2019-03-30] MEDS: LOFIBRA PO SCH (08:42)
[2019-03-30] MEDS ORDERED: LASIX PO SCH (09:00)
[2019-03-30] MEDS ORDERED: KLOR-CON PO SCH (09:00)
--- NOTE | 2019-04-13 08:48 | DISCHARGE SUMMARY ---
ADMISSION DATE: 03/24/2019 DISCHARGE DATE: 03/30/2019 FINAL DISCHARGE DIAGNOSES: 1. Acute on chronic diastolic congestive heart failure exacerbation. 2. Hypertension. 3. Pulmonary hypertension. 4. Status post aortic valve replacement. 5. Paroxysmal atrial fibrillation. 6. Chronic kidney disease. 7. Diabetes mellitus type 2. 8. Morbid obesity. CONSULTATIONS: Cardiology consultation with Dr. Colmenares. HOSPITAL COURSE: Mr. Santiago is a 73-year-old male with a history of multiple medical problems who presented to the ER with a chief complaint of shortness of breath and lower extremity edema. On admission, the patient was noted to have pulmonary vascular congestion on x-ray. The patient was admitted to the hospitalist service and Cardiology was consulted. The patient on admission was noted to have 3+ edema. He was started on IV diuretic therapy as directed by the underwriting clerks supervisor. Over the course of the hospitalization, the patient's lower extremity edema improved, and he was able to ambulate without difficulty. The patient eventually improved and was cleared for discharge home on 03/30/2019. DISCHARGE MEDICATIONS: 1. Eliquis 5 mg oral twice a day. 2. Lasix 80 mg p.o. daily. 3. Toprol-XL 50 mg oral daily. 4. Klor-Con 20 mEq oral daily. 5. Diltiazem 180 mg oral daily. 6. Fenofibrate 160 mg oral daily. 7. Omeprazole 20 mg p.o. daily. 8. Lipitor 40 mg oral at bedtime. 9. Advair 50/50 one inhalation twice a day. 10. Amaryl 2 mg oral daily. 11. Metformin 500 mg oral twice daily. 12. Spiriva 18 mcg inhaled daily. 13. Allopurinol 100 mg oral daily. 14. Aspirin 81 mg oral daily. 15. Zyrtec 10 mg oral daily. 16. Janki Colace 1 tab oral at bedtime. DISCHARGE DIET: Low-sodium 1800 ADA diet. ACTIVITY: As tolerated. FOLLOWUP INSTRUCTIONS: The patient will need to follow up with Dr. Colmenares as scheduled by his clinic. cc: Domonique Vegas MD
== END 2019-03-30 10:59 | disposition home or self-care (01) | DRG 291 ==
LOC: ED 22:54 → SUATTDRO 03-24 02:01 → 4N 03-24 02:01 → 3S 03-25 17:59
PROVIDERS: ATTEND Internal Medicine